=== PATIENT | male | born 1970 | race Hispanic/Latino ===

== ENCOUNTER → 2024-04-15 | Day surgery (SDC) | payer OTHER ==
[~2024-04-15] MED LIST: CRESTOR10 MG PO; FENTANYL CITRATE/PF 100MCG/2 ML INJ ONE; GLIMEPIRIDE2 MG PO; GLUCAGON FOR INJ 1 MG VIAL ONE; HYOSCYAMINE SULFATE 0.5 MG/ML INJ ONE; JARDIANCE10 MG PO; KETAMINE 50MG/5ML SYR ONE; LIDOCAINE HCL 2% LOCAL INJ 5 ML SDV VIAL INJ ONE; METFORMIN HCL500 MG PO; NAPROXEN250 MG PO; OMEGA 3 1,0001 EACH PO; ONDANSETRON HCL INJ 2MG/ML 2ML 2 MG/ML VIAL ONE; PROPOFOL IV EMULSION 10 MG/ML 20 ML VIAL ONE; VITAMIN D2 PO; ZESTRIL10 MG PO
[2024-04-15] MEDS: LACTATED RINGER'S 1,000 ML ONE (12:47)
[2024-04-15 15:23] VITALS: TEMP 99.4
[2024-04-15 15:50] VITALS: BP 146/95; PULSE 53; RESP 18; O2SAT 100
== END | disposition home or self-care (01) ==
LOC: OR 11:13
PROVIDERS: ATTEND Internal Medicine Gastroenterology
DX: Z09 Encounter for follow-up examination after completed treatment for conditions other than malignant neoplasm (principal); K63.5 Polyp of colon; K62.1 Rectal polyp; K64.8 Other hemorrhoids; Z71.3 Dietary counseling and surveillance; E11.9 Type 2 diabetes mellitus without complications; E66.01 Morbid (severe) obesity due to excess calories; I10 Essential (primary) hypertension; Z71.89 Other specified counseling; E78.00 Pure hypercholesterolemia, unspecified; Z01.810 Encounter for preprocedural cardiovascular examination; Z79.84 Long term (current) use of oral hypoglycemic drugs; Z79.1 Long term (current) use of non-steroidal anti-inflammatories (NSAID); Z79.899 Other long term (current) drug therapy; Z68.39 Body mass index [BMI] 39.0-39.9, adult
CPT/HCPCS: 45385; 93005; J1610; J1980; J2003; J2405; J2704; J3010; J7121; 45378